=== PATIENT | male | born 1975 | race Caucasian/White ===

== ENCOUNTER 2024-05-02 09:30 | Day surgery (SDC) | payer MEDICARE ==
[~2024-05-02] VITALS: Ht 182.9 cm; Wt 98.5 kg
[~2024-05-02 09:30] MED LIST: 1/2 NS 250ml250 ML; LOSA25; Lactated Ringer's 1,000 ML IV SCH; TRAZ150T57; ZOLOFT50 MG
[2024-05-02 09:57] VITALS: BP 170/111
[2024-05-02 10:00] VITALS: BP 184/118
--- NOTE | 2024-05-02 10:14 | NUR ---
PT STATES THAT HE WAS TOLD HE HAS HIGH BLOOD PRESSURE BUT THAT HE DOESN'T TAKE MEDICATION. PT HAS HAD A TBI, STATES HE HAS A POOR MEMORY. DR. PATHAK NOTIFIED OF PT BLOOD PRESSURE. PT NOTIFED THAT CASE NEEDED TO BE CANCELLED AND THAT HE NEEDED TO KEEP HIS FOLLOW UP APPT. DR. PATHAK REQUESTED THAT I SPEAK WITH PT JOSE MIGUEL. WHICH I DID AND INFORMED HIM OF DISCHARGE AND PT NEED TO BE EVALUATED BY PRIMARY DOCTOR FOR BLOOD PRESSURE CONCERNS.
== END 2024-05-02 23:00 | disposition home or self-care (01) ==
LOC: ORSCMMR 09:30 → ORD 10:30 → ORSCMMR 10:30
DX: Z12.11 Encounter for screening for malignant neoplasm of colon (principal); Z53.9 Procedure and treatment not carried out, unspecified reason
CPT/HCPCS: J7120

== ENCOUNTER → 2024-05-29 | Outpatient (CLI) | payer MEDICARE, OTHER ==
[~2024-05-29] MED LIST changes: -Lactated Ringer's 1,000 ML IV SCH
[2024-05-29 14:27] LABS: Stool Occult Bld Immuno 1 Negative (NEGATIVE)
== END | disposition home or self-care (01) ==
LOC: LAB 13:18 → LAB SHORT 13:18
PROVIDERS: Internal Medicine Gastroenterology
DX: Z12.11 Encounter for screening for malignant neoplasm of colon (principal)
CPT/HCPCS: G0328